=== PATIENT | female | born 2000 | race African-American/Black ===

== ENCOUNTER 2025-04-05 12:39 | Emergency (ER) | payer BC ==
[2025-04-05 15:41] LABS: Pregnancy Test - Urine (BHCG) Negative (Negative); Pregu Control Background? CLEAR/WHITE (CLR/WHITE); Pregu Control Bar Appear? YES (CONTROL BAR)
[2025-04-05 15:42] LABS: Bacteria/HPF None Seen HPF (None Seen); CAUTI Indications for Culture Pelvic or flank pain; Glucose, Urine (Dipstick) Normal (Negative); Leukocyte Negative Leu/uL (Negative); Protein, Urine (Dipstick) Negative (Neg-Trace); RBC/HPF None Seen HPF (0-3); Specific Gravity, Urine 1.023 (1.002-1.036); WBC/HPF 0-3 HPF (0-3)
[2025-04-05 15:44] LABS: Urine Culture Reflex No No
== END 2025-04-05 16:11 | disposition home or self-care (01) ==
LOC: ERS 12:39
DX: R25.2 Cramp and spasm (principal); F17.290 Nicotine dependence, other tobacco product, uncomplicated
CPT/HCPCS: 81001; 81025; 99284